=== PATIENT | female | born 1965 | race Caucasian/White ===

== ENCOUNTER 2016-05-04 18:44 | Emergency (ER) | payer OTHER | END 2016-05-05 00:13 | disposition home or self-care (01) | LOC: ER1 18:44 | DX: S13.9XXA Sprain of joints and ligaments of unspecified parts of neck, initial encounter (principal); S33.5XXA Sprain of ligaments of lumbar spine, initial encounter; S23.3XXA Sprain of ligaments of thoracic spine, initial encounter; G43.909 Migraine, unspecified, not intractable, without status migrainosus; F17.200 Nicotine dependence, unspecified, uncomplicated; I10 Essential (primary) hypertension; F41.9 Anxiety disorder, unspecified; V43.62XA Car passenger injured in collision with other type car in traffic accident, initial encounter; Y92.410 Unspecified street and highway as the place of occurrence of the external cause; Z88.0 Allergy status to penicillin; Z88.5 Allergy status to narcotic agent | CPT/HCPCS: 70450; 72125; 72128; 72131; 96361; 96374; 96375; 96376; 99284; J1200; J1885; J2405; J2765; J7030 ==

== ENCOUNTER 2021-01-03 00:09 | Emergency (ER) | payer MEDICARE ==
[~2021-01-03 00:09] MED LIST: OMNICEF 300 MG300 MG PO; TESSALON PERLE100 MG PO; VIBRAMYCIN100 MG PO
[2021-01-03 01:17] LABS: HEMOGLOBIN 15.1 gm/dl (12.3-15.3); RED BLOOD COUNT 4.75 M/UL (4.00-5.10); WHITE BLOOD COUNT 6.7 K/UL (4.5-11.0)
[2021-01-03 01:41] LABS: BUN/CREATININE RATIO 14 (0-10)
[2021-01-03] MEDS ORDERED: LISINOPRIL10 MG PO (04:42)
== END 2021-01-03 05:00 | disposition home or self-care (01) ==
LOC: ER1 00:09
PROVIDERS: Emergency Medicine
DX: I10 Essential (primary) hypertension (principal); M54.6 Pain in thoracic spine; F17.200 Nicotine dependence, unspecified, uncomplicated; Z88.0 Allergy status to penicillin; Z88.6 Allergy status to analgesic agent
CPT/HCPCS: 71045; 80053; 82550; 82553; 83874; 84484; 85025; 93005; 96374; 99284